=== PATIENT | male | born 1950 | race Caucasian/White ===

== ENCOUNTER 2016-08-26 10:45 | Emergency (ER) | payer MEDICARE, OTHER ==
[2016-08-26 09:29] LABS: BASOPHILS 0.5 %; BASOPHILS ABSOLUTE 0.04 10/3/uL (0.0-0.16); EOSINOPHILS 2.8 %; EOSINOPHILS ABSOLUTE 0.24 10/3/uL (0.0-0.53); ER CBC TAT 0 Hrs 05 Mins; HEMATOCRIT 44.7 % (40.0-51.0); HEMOGLOBIN 15.2 g/dL (13.6-17.8); IMMATURE GRANULOCYTES 0.4 %; IMMATURE GRANULOCYTES ABSOLUTE 0.03 10/3/uL (0.0-0.11); LYMPHOCYTES 33.1 %; LYMPHOCYTES ABSOLUTE 2.81 10/3/uL (0.67-4.30); MEAN CORPUSCULAR HEMOGLOB 31.7 pg (26.0-34.0); MEAN CORPUSCULAR VOLUME 93.3 fL (80-100); MEAN PLATELET VOLUME 10.9 fL (9.2-13.0); MONOCYTES ABSOLUTE 0.85 10/3/uL (0.21-1.20); NEUTROPHILS 53.2 %; NEUTROPHILS ABSOLUTE 4.53 10/3/uL (2.02-8.40); PLATELET COUNT 167 10/3/uL (150-400); RBC DISTRIBUTION WIDTH 14.2 % (12.0-16.0); RED CELL COUNT 4.79 10/6/uL (4.7-6.1); WHITE BLOOD CELLS 8.5 10/3/uL (4.5-10.5)
[2016-08-26 09:31] LABS: MANUAL DIFF NO %
[2016-08-26 09:35] LABS: PARTIAL THROMBO TIME 25.9 SEC (22.5-37.2); PROTIME (NOT ORD) 12.9 SEC (12.0-14.5)
[2016-08-26 09:48] LABS: BUN (BLOOD UREA NITROGEN) 19 MG/DL (6-23); CALCIUM, SERUM 9.3 MG/DL (8.5-10.4); CHEST PAIN PROFILE TAT 0 Hrs 24 Mins; CHLORIDE, SERUM 108 MMOL/L (96-112); CO2 (CARBON DIOXIDE) 28 MMOL/L (24-34); CREATININE 1.78 MG/DL (0.70-1.30); GFR AFRICAN AMERICAN 45 ML/MIN (>=60); GFR NON AFRICAN AMERICAN 39 ML/MIN (>=60); GLUCOSE, SERUM 109 MG/DL (60-99); POTASSIUM, SERUM 3.6 MMOL/L (3.5-5.3); SODIUM, SERUM 140 MMOL/L (135-148); TROPONIN I <0.02 NG/ML (<0.05)
[~2016-08-26 10:45] MED LIST: ACT300 PO; AMB5 PO; APRES25; ASAB PO; BENTYL10 PO; BRILINTA90 MG PO; CANASA1SUP PR; CAT2 PO; CELEXA20 PO; CIP5 PO; CYCLOSPORINE25 MG PO; CYMBALTA30 PO; GENGRAF25 MG OR; GENGRAF25 MG PO; HCTZ12.5 PO; HYDROCHLOROT12.5 MG PO; HYDROCHLOROT25 MG PO; IMDUR30 PO; IMOD PO; IMU PO; INDE80LA PO; KLONO5 PO; KLOR-CON 1010 MEQ PO; L20 PO; LIPITOR20 PO; LOP25 PO; MICROZIDE PO; NEORAL25 MG OR; NEUR300 PO; NEUR600 PO; NITROII10C TOP; NITROSTAT0.4 MG SL; NORCO1 TA1 PO; NORV10 PO; NTG150 SL; P5 PO; PCET PO; PEPCID40 MG OR; PLAVIX PO; PR12.5 PO; PRAV10 PO; PRAVAC PO; PRILO PO; PRIN10 PO; PROTONIX PO; RAN500 PO; RANEXA1000 MG PO; TOPXL25 PO; V5 PO; VITAMIN D31000 UNIT PO; ZOFRAN4 PO
[2016-08-28] MEDS ORDERED: ASAB PO (07:09)
[2016-11-14] MEDS ORDERED: ASAB PO (02:44)
[2016-11-14] MEDS ORDERED: LIPITOR20 PO (02:45)
[2016-11-14] MEDS ORDERED: IMU PO (02:45)
[2016-11-14] MEDS ORDERED: GENGRAF25 MG PO (02:46)
[2016-11-14] MEDS ORDERED: KLONO5 PO (02:46)
[2016-11-14] MEDS ORDERED: L20 PO (02:47)
[2016-11-14] MEDS ORDERED: NEUR600 PO (02:47)
[2016-11-14] MEDS ORDERED: CYMBALTA30 PO (02:47)
[2016-11-14] MEDS ORDERED: CANASA1SUP PR (02:48)
[2016-11-14] MEDS ORDERED: IMOD PO (02:48)
[2016-11-14] MEDS ORDERED: ILA60 PO (02:49)
[2016-11-14] MEDS ORDERED: NITROSTAT0.4 MG SL (02:49)
[2016-11-14] MEDS ORDERED: NITROII5C TOP (02:50)
[2016-11-14] MEDS ORDERED: PROTONIX PO (02:50)
[2016-11-14] MEDS ORDERED: ZOFRAN4 PO (02:50)
[2016-11-14] MEDS ORDERED: P5 PO (02:52)
[2016-12-24] MEDS ORDERED: *UNABLE3 (05:03)
[2016-12-24] MEDS ORDERED: GENAHIST (07:56)
[2016-12-24] MEDS ORDERED: P5 PO ×2 (07:57→08:59)
[2016-12-24] MEDS ORDERED: IMU PO ×2 (07:57→08:53)
[2016-12-24] MEDS ORDERED: TOPXL25 PO (07:58)
[2016-12-24] MEDS ORDERED: ASAB PO ×2 (07:58→08:52)
[2016-12-24] MEDS ORDERED: PROTONIX PO ×2 (07:59→08:59)
[2016-12-24] MEDS ORDERED: PROMEGA PO (08:00)
[2016-12-24] MEDS ORDERED: PROMEGA (08:00)
[2016-12-24] MEDS ORDERED: ZOFRAN4 PO ×2 (08:01→08:59)
[2016-12-24] MEDS ORDERED: CANASA1SUP PR (08:01)
[2016-12-24] MEDS ORDERED: CYMBALTA30 PO ×2 (08:01→08:56)
[2016-12-24] MEDS ORDERED: ACT300 PO ×2 (08:02→09:02)
[2016-12-24] MEDS ORDERED: NEUR300 PO (08:03)
[2016-12-24] MEDS ORDERED: LIPITOR20 PO (08:52)
[2016-12-24] MEDS ORDERED: KLONO5 PO (08:54)
[2016-12-24] MEDS ORDERED: CYCLOSPORINE100 MG PO (08:55)
[2016-12-24] MEDS ORDERED: L20 PO (08:56)
[2016-12-24] MEDS ORDERED: NEUR600 PO (08:57)
[2016-12-24] MEDS ORDERED: NITROQUICK0.4 MG SL (08:58)
[2016-12-24] MEDS ORDERED: INDE60 (09:00)
[2016-12-24] MEDS ORDERED: CARD120 PO (09:01)
[2016-12-24] MEDS ORDERED: SUCR (09:01)
[2016-12-24] MEDS ORDERED: CARDCD180 PO (11:41)
[2016-12-24] MEDS ORDERED: NITROII10C TOP (11:43)
[2016-12-24] MEDS ORDERED: ILA60 PO (11:44)
[2017-01-13] MEDS ORDERED: CRESTOR10 PO (13:15)
[2017-01-13] MEDS ORDERED: INDE60 PO (13:17)
== END 2016-08-26 10:51 | disposition home or self-care (01) ==
LOC: ER 10:45
PROVIDERS: Physician Assistant
DX: R07.9 Chest pain, unspecified (principal); I12.9 Hypertensive chronic kidney disease with stage 1 through stage 4 chronic kidney disease, or unspecified chronic kidney disease; N18.9 Chronic kidney disease, unspecified; F32.9 Major depressive disorder, single episode, unspecified; Z95.5 Presence of coronary angioplasty implant and graft; Z94.4 Liver transplant status; Z79.52 Long term (current) use of systemic steroids; Z79.899 Other long term (current) drug therapy
CPT/HCPCS: 71010; 80048; 83735; 83880; 84484; 85025; 85610; 85730; 93005; 96374; 96375; 99285; A9270-GY; J2405